=== PATIENT | male | born 1955 | race Two or more races ===

== ENCOUNTER → 2018-08-25 | Day surgery (SDC) | payer OTHER ==
[~2018-08-25] MED LIST: ACETAMINOPHEN ES 500 MG TABLET ONE; CELECOXIB 100 MG CAPSULE ONE; HYDROMORPHONE 1 MG/1 ML DISP.SYRIN ONE; HYDROMORPHONE INJ 2 MG/ML DISP.SYRIN ONE; KETOROLAC TROMETHAMINE INJ 30 MG/ML VIAL ONE; METOCLOPRAMIDE HCL 10 MG/2 ML VIAL ONE; oxyCODONE HCL SR 10MG TAB.SR.12H PO ONE; oxyCODONE IR immediate release 5 MG ONE
[2018-08-25 09:13] LABS: BASOPHILS # (AUTO) 0.1 /CMM (0.0-0.2); BASOPHILS % (AUTO) 0.8 % (0.0-2.0); EOSINOPHILS % (AUTO) 5.6 % (0.0-6.0); HEMATOCRIT 44 % (39-51); HEMOGLOBIN 14.6 g/dL (13.5-17.5); LYMPHOCYTES # (AUTO) 2.6 /CMM (0.8-4.8); LYMPHOCYTES % (AUTO) 34.6 % (20.0-44.0); MEAN CORPUSCULAR HGB CONC 34 g/dl (31.0-36.0); MEAN CORPUSCULAR VOLUME 91 fL (80-96); MONOCYTES # (AUTO) 0.5 /CMM (0.1-1.30); MONOCYTES % (AUTO) 7.3 % (2.0-12.0); NEUTROPHILS # (AUTO) 3.8 /CMM (1.8-8.9); NEUTROPHILS % (AUTO) 51.7 % (43.0-81.0); PLATELET COUNT (AUTO) 172 /CMM (150-450); WHITE BLOOD COUNT (AUTO) 7.4 K/uL (4.3-11.0)
== END | disposition home or self-care (01) ==
LOC: DS 06:51
PROVIDERS: ATTEND Orthopaedic Surgery
DX: T84.84XA Pain due to internal orthopedic prosthetic devices, implants and grafts, initial encounter (principal); Y79.3 Surgical instruments, materials and orthopedic devices (including sutures) associated with adverse incidents; I25.10 Atherosclerotic heart disease of native coronary artery without angina pectoris; I10 Essential (primary) hypertension; Z95.5 Presence of coronary angioplasty implant and graft; Z98.890 Other specified postprocedural states; F17.210 Nicotine dependence, cigarettes, uncomplicated; E66.3 Overweight; Z79.899 Other long term (current) drug therapy
CPT/HCPCS: 20680; 36415; 73600; 85025; A4217; A6402 ×2; J0690; J1100; J1170 ×3; J1885; J2405; J2704; J2765; J3490 ×3; J7050